=== PATIENT | female | born 1995 | race Caucasian/White ===

== ENCOUNTER → 2021-08-23 | Outpatient (CLI) | payer BC ==
[2021-08-23 19:58] LABS: Free Thyroxine 0.73 ng/dL (0.70-1.60)
[2021-08-23 20:01] LABS: Thyroid Stimulating Hormone 11.7 uIU/mL (0.360-4.800)
== END ==
LOC: LAB SHORT 17:40 → LAB 17:40
PROVIDERS: Student in an Organized Health Care Education/Training Program
DX: E03.9 Hypothyroidism, unspecified (principal)
CPT/HCPCS: 84439; 84443